=== PATIENT | male | born 2000 | race Caucasian/White ===

== ENCOUNTER 2020-08-29 18:59 | Emergency (ER) | payer OTHER ==
[~2020-08-29] VITALS: Ht 175.3 cm; Wt 86.2 kg
[2020-08-29 19:04] VITALS: BP 132/79
--- NOTE | 2020-08-29 19:11 | NUR ---
TENT OF 1
--- NOTE | 2020-08-29 19:15 | NUR ---
BIB SELF C/O FEVER, COUGH X 2 DAYS. TEMP 99, HR 137, RR 32 ,O2 SAT 96% AT THIS TIME. MED HX: DENIES
--- NOTE | 2020-08-29 19:20 | NUR ---
SWAB FOR NOVEL DONE AND SENT TO LAB
--- NOTE | 2020-08-29 19:30 | NUR ---
Patient discharged with v/s stable. Written and verbal after care instructions given and explained. Patient alert, oriented and verbalized understanding of instructions. Ambulatory with steady gait. All questions addressed prior to discharge. ID band removed. Patient advised to follow up with PMD. Rx of PROMETHAZINE DM, TAMIFLU 75 MG given. Patient educated on indication of medication including possible reaction and side effects. Opportunity to ask questions provided and answered.
== END 2020-08-29 19:30 | disposition home or self-care (01) ==
LOC: MED 18:59
DX: B34.9 Viral infection, unspecified (principal); Z20.828 Contact with and (suspected) exposure to other viral communicable diseases
CPT/HCPCS: 99283; U0003